=== PATIENT | female | born 1940 | race Two or more races ===

== ENCOUNTER → 2016-12-09 | Outpatient (CLI) | payer OTHER ==
--- NOTE | 2016-12-09 12:12 | RAD ---
EXAM: Left brachial plexus MRI without contrast. HISTORY: Left upper extremity weakness status post fall. TECHNIQUE: Multiplanar and multisequence magnetic resonance imaging of the left brachial plexus performed without contrast. COMPARISON: None. FINDINGS: There is no suspicious lesion along the course of the left brachial plexus. Evaluation for neural-based lesions is limited due to the absence of contrast. There is cervical kyphosis. There is mild anterolisthesis of C7 on T1. There is advanced degenerative endplate remodeling with disc space narrowing and osteophytosis at C4-C7. There is also facet and uncovertebral arthropathy at these levels. This continues to foraminal and central canal stenosis, incompletely evaluate on the current exam. There is mild decreased vertebral body height at C5, likely degenerative or the sequela of remote injury. There is mild bilateral acromioclavicular osteoarthritis with small inferiorly directed distal clavicular spurs. The visualized portions of the lungs and superior mediastinum are unremarkable. There is a suspected tiny focus of encephalomalacia within the left cerebellum, possibly due to chronic infarction. There is no lymphadenopathy. There is trace left glenohumeral joint fluid. IMPRESSION: 1. No suspicious finding involving the left brachial plexus, with evaluation limited due to the absence of intravenous contrast. 2. Multilevel degenerative changes of the cervical spine, with suspected significant foraminal and mild central canal stenosis at multiple levels. This is incompletely evaluated on the current exam. Given reported left upper extremity weakness, a dedicated cervical spine MRI may be useful to assess for possible foraminal neural impingement. 3. Mild bilateral acromioclavicular osteoarthritis and trace left glenohumeral joint fluid. The shoulders are not formally assessed on this exam. Electronically signed by: Gemma Bunn MD (12/09/2016 12:09 PM)
== END | disposition home or self-care (01) ==
LOC: MRI 10:22
PROVIDERS: ATTEND Psychiatry & Neurology Neurology with Special Qualifications in Child Neurology
DX: G54.0 Brachial plexus disorders (principal); M19.012 Primary osteoarthritis, left shoulder
CPT/HCPCS: 71550

== ENCOUNTER → 2017-10-27 | Outpatient (CLI) | payer OTHER | END | disposition home or self-care (01) | LOC: KCIC MAMMO 10:47 | DX: Z12.31 Encounter for screening mammogram for malignant neoplasm of breast (principal) | CPT/HCPCS: 77067 ==

== ENCOUNTER → 2017-12-08 | Outpatient (CLI) | payer OTHER ==
[2017-12-08 23:10] LABS: MRSA BY PCR Negative (Negative)
== END | disposition home or self-care (01) ==
LOC: SURGPAT 14:27
DX: Z01.818 Encounter for other preprocedural examination (principal); I10 Essential (primary) hypertension; R91.8 Other nonspecific abnormal finding of lung field; R94.31 Abnormal electrocardiogram [ECG] [EKG]
CPT/HCPCS: 36415; 71046; 87641; 93005

== ENCOUNTER → 2017-12-17 | Outpatient (CLI) | payer OTHER | END | disposition home or self-care (01) | LOC: CT 07:12 | DX: R93.8 Abnormal findings on diagnostic imaging of other specified body structures (principal) | CPT/HCPCS: 71250 ==

== ENCOUNTER → 2017-12-18 | Outpatient (CLI) | payer OTHER ==
[2017-12-18] MEDS: REGADENOSON 0.4 MG/5 ML DISP.SYRIN. IV (10:12)
== END | disposition home or self-care (01) ==
LOC: NM 07:25
DX: Z01.818 Encounter for other preprocedural examination (principal); M17.0 Bilateral primary osteoarthritis of knee; I10 Essential (primary) hypertension; R94.31 Abnormal electrocardiogram [ECG] [EKG]; Z86.73 Personal history of transient ischemic attack (TIA), and cerebral infarction without residual deficits
CPT/HCPCS: 78452; 93017; 96374; 96375; 96376; A9500; J2785

== ENCOUNTER → 2018-10-28 | Outpatient (CLI) | payer OTHER ==
[2017-12-24 08:30] VITALS: BP 177/74
[~2018-10-28] MED LIST: AMLO5TAB10 PO; ASPI-630 PO; ATEN50TA PO; ATOR40TA59 PO; CALC500T30 PO; GABA300C18 PO; GARL100T PO; LOSA100T14 PO; OMEG1CAP6 PO; OMEP20TA8 PO; PARO20TA3 PO; SIMV20TA3 PO
--- NOTE | 2018-10-29 08:27 | KCIC ---
BILATERAL SCREENING MAMMOGRAM History: Routine screening. Comparison: Bilateral mammogram 02/26/2018 and dating back to 2015. Technique: Routine bilateral digital mammogram views were obtained. Findings: Breast Tissue Density B : There are scattered areas of fibroglandular density. Arterial and nonarterial calcifications redemonstrated bilaterally. There are no dominant masses, suspicious microcalcifications, or architectural distortion. IMPRESSION: No mammographic evidence of malignancy. Recommend routine screening. BI-RADS category 2: Benign findings. The images were reviewed with computer aided detection. Patient information is entered into the reminder system with a target due date for the next screening mammogram. Mammography is the most sensitive method for finding small breast cancers, but it does not detect them all and is not a substitute for careful clinical examination. A negative mammogram does not negate a clinically suspicious finding and should not result in delay in biopsying a clinically suspicious abnormality. "Our facility is accredited by the [employer] Mammography [employer]." Electronically signed by: Lucho Christianson MD (10/29/2018 8:24 AM) [id number]
== END | disposition home or self-care (01) ==
LOC: KCIC MAMMO 12:42
PROVIDERS: ATTEND Internal Medicine
DX: Z12.31 Encounter for screening mammogram for malignant neoplasm of breast (principal)
CPT/HCPCS: 77067

== ENCOUNTER → 2020-02-20 | Outpatient (CLI) | payer OTHER ==
[2017-12-24 08:30] VITALS: BP 177/74
[~2020-02-20] MED LIST changes: +SIMV20TA18 PO; -SIMV20TA3 PO
--- NOTE | 2020-02-20 19:43 | KCIC ---
Bilateral digital screening mammograms with 3-D tomosynthesis: Reason for examination: Routine screening. Comparison is made to previous studies dated back to 06/19/2016. Bilateral mammograms in CC and oblique projections were obtained with 2-D imaging and 3-D tomosynthesis imaging on a Siemens Inspiration unit and reviewed on the workstation. Interpretation was made with the benefit of CAD. The skin and nipples show no abnormalities. No abnormal axillary lymph nodes are seen. The breast parenchyma is heterogeneously dense. (Breast density: Category C.) There are no dominant masses, suspicious calcifications or architectural distortion. Benign calcifications are present. Impression: No evidence of malignancy. Recommend routine screening. Your patient's mammogram demonstrates that she has dense breast tissue (breast density category C or D), which could hide abnormalities, and if she has other risk factors for breast cancer that have been identified, she might benefit from supplemental screening tests that may be suggested by you as her ordering physician. Dense breast tissue, in and of itself, is a relatively common condition. Therefore, this information is not provided to cause undue concern, but rather to raise your awareness and to promote discussion with your patient regarding the presence of other risk factors, in addition to dense breast tissue. Your patient's mammography results will be sent to her. BI-RAD Category 2: Benign. "Our facility is accredited by the [employer] Mammography Program." This patient's information has been entered into a reminder system for the patient to be notified with the results of her examination and a target date for the next mammogram. Electronically signed by: Claudia Ramirez MD (02/20/2020 7:40 PM) [email or web address]
== END | disposition home or self-care (01) ==
LOC: KCIC MAMMO 09:38
PROVIDERS: ATTEND Internal Medicine
DX: Z12.31 Encounter for screening mammogram for malignant neoplasm of breast (principal); N64.89 Other specified disorders of breast
CPT/HCPCS: 77063; 77067

== ENCOUNTER → 2021-03-20 | Outpatient (CLI) | payer MEDICARE, OTHER ==
[2017-12-24 08:30] VITALS: BP 177/74
[~2021-03-20] MED LIST changes: +AMLO-186 PO; -AMLO5TAB10 PO
--- NOTE | 2021-03-21 09:52 | KCIC ---
Bilateral digital screening 2-D and 3-D (digital breast tomosynthesis) mammograms with CAD: Reason for examination: Routine screening. Comparison: Mammograms from 02/20/2020 and 10/28/2018. Findings: Breast density:: Category C. The breasts are heterogeneously dense, which may obscure small masses. There are no suspicious masses, malignant appearing calcifications or architectural distortion. There are multiple small oval circumscribed masses in both breasts. Impression: No evidence of malignancy. ASSESSMENT: BI-RADS 2. Benign findings. Recommendations: Routine screening mammograms. This patient's information has been entered into a reminder system for the patient to be notified wit h the results of her examination and a target date for the next mammogram. Your patient's mammogram demonstrates that she has dense breast tissue (breast density category C or D), which could hide abnormalities, and if she has other risk factors for breast cancer that have bee n identified, she might benefit from supplemental screening tests that may be suggested by you as her ordering physician. Dense breast tissue, in and of itself, is a relatively common condition. Therefo re, this information is not provided to cause undue concern, but rather to raise your awareness and t o promote discussion with your patient regarding the presence of other risk factors, in addition to d ense breast tissue. Electronically signed by: Adalgisa Yen MD (03/21/2021 9:49 AM) [email or web address]
== END ==
LOC: KCIC MAMMO 08:57
PROVIDERS: ATTEND Internal Medicine
DX: Z12.31 Encounter for screening mammogram for malignant neoplasm of breast (principal)
CPT/HCPCS: 77063; 77067